=== PATIENT | male | born 1965 | race Caucasian/White ===

== ENCOUNTER 2019-12-15 17:40 | Inpatient (IN) | payer OTHER ==
[~2019-12-15] VITALS: Ht 175.3 cm; Wt 88.8 kg
[2019-12-15] MEDS ORDERED: PROMETHAZINE 25 MG/ML, 1ML IM STA (18:07)
[2019-12-15] MEDS ORDERED: ACETAMINOPHEN 325 MG TABLET PO ONE (18:30)
[2019-12-15] MEDS ORDERED: PROMETHAZINE 25 MG/ML, 1ML ONE (18:38)
[2019-12-15] MEDS ORDERED: ACETAMINOPHEN 500 MG TABLET ONE (18:39)
[2019-12-15 19:06] LABS: BASOPHILS % (AUTO) 0 % (0-1); EOSINOPHILS % (AUTO) 0 % (1-7); LYMPHOCYTES % (AUTO) 14 % (22-44); MEAN CORPUSCULAR HEMOGLOBIN 30.7 pg (27.5-34.5); MEAN CORPUSCULAR HGB CONC 34.1 g/dL (33.2-36.2); MEAN PLATELET VOLUME 6.9 fL (7.4-10.4); MONOCYTES % (AUTO) 4 % (2-9); NEUTROPHILS % (AUTO) 82 % (42-75); PLATELET COUNT 222 x10^3/uL (130-400); RED BLOOD COUNT 5.25 x10^6/uL (4.38-5.82); RED CELL DISTRIBUTION WIDTH 13.9 % (9.4-14.8)
[2019-12-15 19:07] LABS: ALANINE AMINOTRANSFERASE 30 U/L (12-78); ALBUMIN 3.8 g/dL (3.4-5.0); ANION GAP 10 mmol/L (5-15); CALCIUM 8.5 mg/dL (8.5-10.1); CHLORIDE 99 mmol/L (98-107)
[2019-12-15 19:09] LABS: ALKALINE PHOSPHATASE 54 U/L (45-117); BILIRUBIN,TOTAL 0.7 mg/dL (0.2-1.0); TOTAL PROTEIN 7.1 g/dL (6.4-8.2)
--- NOTE | 2019-12-15 19:15 | NUR ---
LATE ENTRY: ASSUMED CARE. PT RESTING IN [facility]. 2 SHERRIFS IN WITH PT. PT TO BE ADMITTED. PT EDUCATED ON PLAN OF CARE
[2019-12-15 19:16] LABS: MD NO
[2019-12-15] MEDS ORDERED: SODIUM CHLORIDE 0.9% 1,000ML IVBOLUS ONE (20:00)
[2019-12-15] MEDS ORDERED: DEXAMETHASONE 4 MG/ML, 1ML IVPush ONE (20:00)
[2019-12-15] MEDS ORDERED: SODIUM CHLORIDE FLUSH 10ML SYR IVF ONE (20:00)
[2019-12-15] MEDS ORDERED: DEXAMETHASONE 4 MG/ML, 1ML ONE (20:01)
[2019-12-15] MEDS ORDERED: ONDANSETRON ODT 4 MG PO PRN (20:30)
[2019-12-15] MEDS ORDERED: BISACODYL 10 MG SUPP PR PRN (20:30)
[2019-12-15] MEDS: DEXAMETHASONE 4 MG/ML, 1ML IVPush SCH (20:30)
[2019-12-15] MEDS ORDERED: ACETAMINOPHEN 325 MG TABLET PO PRN (20:30)
[2019-12-15] MEDS ORDERED: POLYETHYLENE GLYCOL 17 GM PACKET PO PRN (20:30)
[2019-12-15 20:58] LABS: INTERNATIONAL NORMALIZED RATIO 1.11 (0.93-1.1); PROTHROMBIN TIME 11.4 Seconds (9.6-11.5)
[2019-12-15] MEDS ORDERED: OMNIPAQUE 350 MG/ML, 100ML BOTTLE ONE (21:02)
--- NOTE | 2019-12-15 21:07 | NUR ---
PT RESTURNED FROM CT SCAN. RESTING IN [facility]. NAD. VSS.
[2019-12-15 21:52] VITALS: BP 137/83
[2019-12-15] MEDS: NS + 20MEQ KCL 1,000 ML IV SCH (22:41)
[2019-12-16 00:41] VITALS: BP 113/71
[2019-12-16] MEDS: DEXAMETHASONE 4 MG/ML, 1ML IVPush SCH ×4 (01:55→20:30)
[2019-12-16 05:57] LABS: CHLORIDE 109 mmol/L (98-107)
[2019-12-16 06:00] LABS: BASOPHILS % (AUTO) 0 % (0-1); EOSINOPHILS % (AUTO) 0 % (1-7); LYMPHOCYTES % (AUTO) 17 % (22-44); MEAN CORPUSCULAR HEMOGLOBIN 30.7 pg (27.5-34.5); MONOCYTES % (AUTO) 2 % (2-9); NEUTROPHILS % (AUTO) 80 % (42-75); PLATELET COUNT 263 x10^3/uL (130-400); RED BLOOD COUNT 5.24 x10^6/uL (4.38-5.82); RED CELL DISTRIBUTION WIDTH 13.7 % (9.4-14.8)
[2019-12-16 06:01] LABS: ANION GAP 7 mmol/L (5-15); CALCIUM 8.4 mg/dL (8.5-10.1); CREATININE 0.77 mg/dL (0.7-1.3)
[2019-12-16 06:26] LABS: MD NO
[2019-12-16] MEDS ORDERED: GADOTERATE 10 MMOL/20 ML SYR ONE (06:41)
[2019-12-16 07:59] VITALS: BP 129/82
[2019-12-16] MEDS: SENNA/DOCUSATE TABLET PO SCH (08:00)
[2019-12-16] MEDS: NS + 20MEQ KCL 1,000 ML IV SCH ×2 (10:22→20:46)
[2019-12-16] MEDS: BUTALB/APAP/CAFFEINE 50MG/325MG/40MG PO PRN (10:39)
[2019-12-16 12:03] VITALS: BP 128/67
[2019-12-16 22:40] VITALS: BP 120/79
[2019-12-17] MEDS: DEXAMETHASONE 4 MG/ML, 1ML IVPush SCH ×3 (02:30→14:34)
[2019-12-17 02:56] VITALS: BP 130/89
[2019-12-17] MEDS: NS + 20MEQ KCL 1,000 ML IV SCH ×2 (05:50→14:34)
[2019-12-17] MEDS ORDERED: GADOTERATE 10 MMOL/20 ML VIAL ONE (07:16)
[2019-12-17 07:56] VITALS: BP 122/81
[2019-12-17] MEDS: SENNA/DOCUSATE TABLET PO SCH (08:32)
[2019-12-17] MEDS: BUTALB/APAP/CAFFEINE 50MG/325MG/40MG PO PRN (08:36)
[2019-12-17] MEDS ORDERED: DEXA4TAB66 PO (12:27)
[2019-12-17] MEDS ORDERED: LEVE500T54 PO (12:27)
[2019-12-17] MEDS ORDERED: BUTA-177 PO (12:27)
[2019-12-17 13:00] VITALS: BP 119/76
== END 2019-12-17 15:15 | DRG 55 ==
LOC: ED 19:44 → EDIP 19:50 → ED 20:45 → 4WST 21:48
PROVIDERS: ADMIT Family Medicine; ATTEND Hospitalist
DX: D32.0 Benign neoplasm of cerebral meninges (principal); E87.1 Hypo-osmolality and hyponatremia; G44.89 Other headache syndrome; I10 Essential (primary) hypertension; Z20.828 Contact with and (suspected) exposure to other viral communicable diseases; G93.9 Disorder of brain, unspecified; E87.6 Hypokalemia
CPT/HCPCS: 36415; 70450; 70546; 70553; 71260; 74177; 80048; 80053; 83690; 85025; 85610; 85730; 87635; 93005; G0378; J1100; J2550; J3480; Q9967; A9575; J7030

== ENCOUNTER 2020-03-01 16:03 | Emergency (ER) | payer MEDICAID, OTHER ==
[~2020-03-01] VITALS: Ht 175.3 cm; Wt 93.4 kg
[~2020-03-01 16:03] MED LIST: BUTA-177 PO; DEXA4TAB66 PO; LEVE500T54 PO
[2020-03-01 16:44] LABS: BASOPHILS % (AUTO) 1 % (0-1); EOSINOPHILS % (AUTO) 1 % (1-7); LYMPHOCYTES % (AUTO) 38 % (22-44); MEAN CORPUSCULAR HEMOGLOBIN 31.1 pg (27.5-34.5); MONOCYTES % (AUTO) 16 % (2-9); NEUTROPHILS % (AUTO) 44 % (42-75); PLATELET COUNT 244 x10^3/uL (130-400); RED BLOOD COUNT 4.98 x10^6/uL (4.38-5.82)
[2020-03-01 16:47] LABS: MD NO
[2020-03-01 16:51] LABS: ALANINE AMINOTRANSFERASE 35 U/L (12-78); ALBUMIN 3.7 g/dL (3.4-5.0); ANION GAP 3 mmol/L (5-15); CALCIUM 8.7 mg/dL (8.5-10.1); CHLORIDE 109 mmol/L (98-107)
[2020-03-01 16:54] LABS: ALKALINE PHOSPHATASE 76 U/L (45-117); BILIRUBIN,TOTAL 0.3 mg/dL (0.2-1.0); TOTAL PROTEIN 7.5 g/dL (6.4-8.2)
--- NOTE | 2020-03-01 18:03 | NUR ---
PT COMPLAINS OF HEADACHE X3MO. PT REPORTS HE IS HERE TODAY BECAUSE IT IS WORSE AND HE IS STARTING TO FEEL DIZZY. PT RESTING IN [facility], MONITORING IN PLACE, [place] AT THIS TIME. WILL CONTINUE TO MONITOR.
[2020-03-01] MEDS ORDERED: DEXAMETHASONE 4 MG TABLET ONE (18:13)
[2020-03-01] MEDS ORDERED: DEXAMETHASONE 4 MG TABLET PO ONE (18:30)
[2020-03-01 18:45] VITALS: BP 109/67
== END 2020-03-01 18:47 | disposition home or self-care (01) ==
LOC: ED 18:40
DX: D32.0 Benign neoplasm of cerebral meninges (principal)
CPT/HCPCS: 36415; 70450; 80053; 85025; 99284

== ENCOUNTER 2020-03-07 09:31 | Emergency (ER) | payer MEDICAID ==
[~2020-03-07] VITALS: Ht 177.8 cm; Wt 82.0 kg
--- NOTE | 2020-03-07 09:41 | NUR ---
PT HAS FLU LIKE SX STARTING 2 WEEKS AGO ON LEVETIRSCETON 500MG, DEXAMETHASONE 2MG AND FAMOTIDINE. REPORTS INCREASE N/V/D AND FEVER. PT IN BED IN GOWN WITH CONT MUTTON PUNCHER, SPO2, BP Q 30 MIN, SIDE RAILS UP X2, CALL LIGHT IN REACH.
[2020-03-07] MEDS ORDERED: PANTOPRAZOLE 40 MG IV IVPush ONE (10:00)
[2020-03-07] MEDS ORDERED: PROMETHAZINE 25 MG/ML, 1ML IM ONE (10:00)
[2020-03-07] MEDS ORDERED: SODIUM CHLORIDE FLUSH 10ML SYR IVF ONE (10:00)
[2020-03-07] MEDS ORDERED: KETOROLAC 30 MG/1 ML IVPush ONE (10:00)
[2020-03-07] MEDS ORDERED: FAMOTIDINE 20 MG/2 ML IV ONE (10:00)
[2020-03-07] MEDS ORDERED: SODIUM CHLORIDE 0.9% 1,000ML IVBOLUS ONE (10:00)
[2020-03-07] MEDS ORDERED: FAMOTIDINE 20 MG/2 ML ONE (10:10)
[2020-03-07] MEDS ORDERED: PROMETHAZINE 25 MG/ML, 1ML ONE (10:10)
[2020-03-07] MEDS ORDERED: PANTOPRAZOLE 40 MG IV ONE (10:10)
[2020-03-07] MEDS ORDERED: KETOROLAC 30 MG/1 ML ONE (10:10)
[2020-03-07 11:06] LABS: ALBUMIN 3.7 g/dL (3.4-5.0); ANION GAP 9 mmol/L (5-15); CHLORIDE 110 mmol/L (98-107)
[2020-03-07 11:11] LABS: ALANINE AMINOTRANSFERASE 29 U/L (12-78); ALKALINE PHOSPHATASE 69 U/L (45-117); BILIRUBIN,TOTAL 0.5 mg/dL (0.2-1.0); CREATININE 1.03 mg/dL (0.7-1.3); TOTAL PROTEIN 7.9 g/dL (6.4-8.2)
[2020-03-07 11:17] LABS: BASOPHILS % (AUTO) 0 % (0-1); EOSINOPHILS % (AUTO) 0 % (1-7); LYMPHOCYTES % (AUTO) 11 % (22-44); MEAN CORPUSCULAR HEMOGLOBIN 31.2 pg (27.5-34.5); MEAN CORPUSCULAR HGB CONC 34.3 g/dL (33.2-36.2); MEAN PLATELET VOLUME 7.2 fL (7.4-10.4); MONOCYTES % (AUTO) 10 % (2-9); NEUTROPHILS % (AUTO) 79 % (42-75); PLATELET COUNT 215 x10^3/uL (130-400); RED BLOOD COUNT 5.34 x10^6/uL (4.38-5.82); RED CELL DISTRIBUTION WIDTH 13.2 % (9.4-14.8)
[2020-03-07 11:20] LABS: MD NO
[2020-03-07] MEDS ORDERED: ACETAMINOPHEN 325 MG TABLET PO ONE (11:30)
[2020-03-07] MEDS ORDERED: ACETAMINOPHEN 325 MG TABLET ONE (11:39)
[2020-03-07 12:45] LABS: MICROSCOPIC INDICATED
[2020-03-07 14:21] VITALS: BP 124/74
== END 2020-03-07 14:23 | disposition other institution (70) ==
LOC: MERGE 09:31 → ED 13:20
DX: U07.1 COVID-19 (principal); D32.0 Benign neoplasm of cerebral meninges; R11.2 Nausea with vomiting, unspecified; E86.0 Dehydration
CPT/HCPCS: 36415; 71045; 80053; 81001; 83690; 85025; 87635; 96361; 96372; 96374; 96375; 99285; C9113; J1885; J2550; J7030

== ENCOUNTER 2020-03-10 12:55 | Emergency (ER) | payer MEDICAID ==
[~2020-03-10] VITALS: Ht 175.3 cm; Wt 86.3 kg
--- NOTE | 2020-03-10 13:24 | NUR ---
PT BIB [facility], PT WITH +COVID TEST ON SATURDAY. WOKE UP IN THE MIDDLE OF THE NIGHT WITH INCREASING SHORTNESS OF BREATH AND CHEST TIGHTNESS LASTING SEVERAL MINUTES. PT AMBULATES TO WITH EMS FROM [facility], NO RESP DISTRESS NOTED. PT SATING 97%RA. PT TO CARD MONITOR, BP, CONT PULSE OX. ERMD IN TO EVAL PT, ORDERS RECIEVED.
[2020-03-10 14:04] VITALS: BP 120/70
--- NOTE | 2020-03-10 14:07 | NUR ---
BREAK RN: PT RESTING IN ROOM. VS STABLE. LAB IN ROOM. NO ACUTE DISTRESS NOTED. CALL LIGHT IN PLACE. WILL CONTINUE TO MONITOR WHILE PRIMARY RN IS ON BREAK.
[2020-03-10 14:26] LABS: BASOPHILS % (AUTO) 1 % (0-1); EOSINOPHILS % (AUTO) 0 % (1-7); LYMPHOCYTES % (AUTO) 29 % (22-44); MEAN CORPUSCULAR HEMOGLOBIN 30.5 pg (27.5-34.5); MEAN PLATELET VOLUME 7.3 fL (7.4-10.4); MONOCYTES % (AUTO) 13 % (2-9); NEUTROPHILS % (AUTO) 57 % (42-75); PLATELET COUNT 189 x10^3/uL (130-400); RED BLOOD COUNT 4.84 x10^6/uL (4.38-5.82); RED CELL DISTRIBUTION WIDTH 13.5 % (9.4-14.8)
[2020-03-10 14:28] LABS: ANION GAP 5 mmol/L (5-15); CALCIUM 7.7 mg/dL (8.5-10.1); CHLORIDE 107 mmol/L (98-107); CREATININE 0.81 mg/dL (0.7-1.3); MD NO
--- NOTE | 2020-03-10 14:44 | NUR ---
ERMD IN TO UPDATE PT ON POC
== END 2020-03-10 16:12 | disposition home or self-care (01) ==
LOC: ED 13:46
DX: U07.1 COVID-19 (principal); J06.9 Acute upper respiratory infection, unspecified; R06.02 Shortness of breath; J02.9 Acute pharyngitis, unspecified; R07.89 Other chest pain; I10 Essential (primary) hypertension; R10.9 Unspecified abdominal pain
CPT/HCPCS: 36415; 71045; 80048; 82040; 85025; 99284